=== PATIENT | male | born 1970 | race Hispanic/Latino ===

== ENCOUNTER → 2019-03-06 | Outpatient (CLI) | payer BC ==
[~2019-03-06] VITALS: Ht 180.3 cm; Wt 121.6 kg
[~2019-03-06] MED LIST: REGADENOSON 0.4 MG/5 ML PF SYG IVP SCH
== END | disposition home or self-care (01) ==
LOC: SHCH 07:52
PROVIDERS: ATTEND Internal Medicine Cardiovascular Disease
DX: R06.02 Shortness of breath (principal)
CPT/HCPCS: 78452; 93017; 96374; A9500 ×2; J2785

== ENCOUNTER 2019-06-09 17:51 | Observation (INO) | payer BC ==
[~2019-06-09] VITALS: Ht 180.3 cm; Wt 95.8 kg
[2019-06-09 18:11] LABS: BASOPHILS % (AUTO) 0.4 % (0.0-5.0); EOSINOPHILS % (AUTO) 1.8 % (0.0-8.0); HEMATOCRIT 44.8 % (42-54); LYMPHOCYTES % (AUTO) 15.2 % (21.0-51.0); MEAN CORPUSCULAR HEMOGLOBIN 32.2 pg (27.0-33.0); MEAN CORPUSCULAR HGB CONC 35.1 g/dL (32.0-36.0); MEAN CORPUSCULAR VOLUME 91.6 fL (79-99); MONOCYTES % (AUTO) 7.7 % (3.0-13.0); NEUTROPHILS % (AUTO) 74.9 % (40.0-77.0); PLATELET COUNT (AUTO) 262 K/uL (130-400); RED BLOOD CELL COUNT(AUTO) 4.89 MIL/uL (4.50-6.20); RED CELL DISTRIBUTION WIDTH 13.5 % (11.0-15.5); WHITE BLOOD COUNT (AUTO) 11.7 K/uL (4.8-10.8)
[2019-06-09 18:20] LABS: POTASSIUM 3.9 mmol/L (3.5-5.1)
[2019-06-09 18:22] LABS: INR 0.95 (0.85-1.15); PARTIAL THROMBOPLASTIN TIME 28.4 SEC (26.3-35.5)
[2019-06-09 18:25] LABS: BILIRUBIN,TOTAL 0.7 mg/dL (0.2-1.0); TOTAL PROTEIN, SERUM 7.2 g/dL (6.0-8.3)
[2019-06-09] MEDS ORDERED: ASPIRIN 325 MG TABLET ONE (18:56)
[2019-06-09] MEDS ORDERED: NITROGLYCERIN 0.4 MG SL TAB SL ONE (18:57)
[2019-06-09 19:47] LABS: CREATINE KINASE, TOTAL 199 U/L (21-232); MYOGLOBIN 46 ng/mL (10-92); TROPONIN I < 0.04 ng/mL (0.00-0.06)
[2019-06-09] MEDS ORDERED: NITROGLYCERIN 0.4 MG SL TAB SL PRN (20:00)
[2019-06-10] MEDS ORDERED: ASPI-555 PO (00:09)
[2019-06-10] MEDS ORDERED: CARV25TA PO (00:09)
[2019-06-10] MEDS ORDERED: LEVO125T11 PO (00:09)
[2019-06-10] MEDS ORDERED: CHOL200012 PO (00:09)
[2019-06-10] MEDS ORDERED: FISH12002 PO (00:09)
[2019-06-10] MEDS ORDERED: ROSU20TA23 PO (00:09)
[2019-06-10] MEDS ORDERED: UBID100C45 PO (00:09)
[2019-06-10 01:39] LABS: CREATINE KINASE, TOTAL 165 U/L (21-232); MYOGLOBIN 52 ng/mL (10-92); TROPONIN I < 0.04 ng/mL (0.00-0.06)
[2019-06-10 04:20] VITALS: BP 150/80
[2019-06-10 07:51] VITALS: BP 129/67
[2019-06-10 11:40] VITALS: BP 113/81
--- NOTE | 2019-06-10 14:15 | NUR ---
Dr borja at patients bedside to review plan of care. ordered med stat on dose and for patient to be discharged home
[2019-06-10] MEDS ORDERED: CARVEDILOL 25 MG TABLET PO STA (15:01)
[2019-06-10 15:05] VITALS: BP 145/96
[2019-06-10] MEDS ORDERED: CARVEDILOL 25 MG TABLET PO ONE (15:07)
[2019-06-10 15:40] VITALS: BP 145/96
--- NOTE | 2019-06-10 17:30 | NUR ---
Patient discharged at 1512 instruction, education, and medicaiton education were completed. patient left with all belongings and all questions answered.
== END 2019-06-10 17:29 | disposition home or self-care (01) ==
LOC: EDH 17:51 → EDHIP 19:10 → 2DH 06-10 04:16
PROVIDERS: ADMIT Internal Medicine; ATTEND Internal Medicine
DX: R07.89 Other chest pain (principal); I10 Essential (primary) hypertension; E78.00 Pure hypercholesterolemia, unspecified; I25.10 Atherosclerotic heart disease of native coronary artery without angina pectoris; E78.5 Hyperlipidemia, unspecified; Z87.891 Personal history of nicotine dependence; Z95.5 Presence of coronary angioplasty implant and graft; Z79.899 Other long term (current) drug therapy
CPT/HCPCS: 36415; 71045; 80053; 82550; 83874; 84484; 85025; 85610; 85730; 93005; G0378

== ENCOUNTER 2019-09-22 09:45 | Day surgery (SDC) | payer BC ==
[2019-09-17 09:17] LABS: BASOPHILS % (AUTO) 0.6 % (0.0-5.0); HEMATOCRIT 44.5 % (42-54); LYMPHOCYTES % (AUTO) 14.8 % (21.0-51.0); MEAN CORPUSCULAR HEMOGLOBIN 30.7 pg (27.0-33.0); MEAN CORPUSCULAR HGB CONC 35.3 g/dL (32.0-36.0); MEAN CORPUSCULAR VOLUME 86.9 fL (79-99); MONOCYTES % (AUTO) 10.1 % (3.0-13.0); NEUTROPHILS % (AUTO) 71.2 % (40.0-77.0); PLATELET COUNT (AUTO) 226 K/uL (130-400); RED BLOOD CELL COUNT(AUTO) 5.12 MIL/uL (4.50-6.20); RED CELL DISTRIBUTION WIDTH 12.5 % (11.0-15.5); WHITE BLOOD COUNT (AUTO) 9.3 K/uL (4.8-10.8)
[2019-09-17 09:20] LABS: APPEARANCE,URINE Clear (CLEAR); BILIRUBIN,URINE Negative (NEGATIVE); COLOR,URINE Yellow (YELLOW); GLUCOSE, URINE (UA) Negative (NEGATIVE); KETONES,URINE Negative (NEGATIVE); LEUKOCYTE ESTERASE ,URINE Negative (NEGATIVE); NITRATE,URINE Negative (NEGATIVE); OCCULT BLOOD,URINE Negative (NEGATIVE); PROTEIN,URINE Negative (NEGATIVE)
[2019-09-17 09:33] LABS: POTASSIUM 4.1 mmol/L (3.5-5.1)
[2019-09-17 09:35] LABS: INR 0.94 (0.85-1.15); PARTIAL THROMBOPLASTIN TIME 28.3 SEC (26.3-35.5); PROTHROMBIN TIME 9.9 SEC (9.6-11.6)
[2019-09-17 09:44] VITALS: BP 116/72
[2019-09-17 10:29] VITALS: BP 116/72
[~2019-09-22] VITALS: Ht 180.3 cm; Wt 120.3 kg
[2019-09-22] VITALS (9 sets, daily range): BP systolic 96–114; BP diastolic 44–92
[~2019-09-22 09:45] MED LIST changes: +ASPI-555 PO; +CARV25TA PO; +CHOL100018 PO; +FISH12002 PO; +LEVO125T11 PO; +LISI-613 PO; +MULT-1258 PO; +OMEP40CA13 PO; -REGADENOSON 0.4 MG/5 ML PF SYG IVP SCH; +ROSU40TA21 PO; +UBID100C45 PO
[2019-09-22] MEDS ORDERED: IOHEXOL-350 50ML VIAL IV ONE (12:12)
[2019-09-22] MEDS ORDERED: LIDOCAINE HCL 2% 20ML ONE ×2 (12:12→14:05)
[2019-09-22] MEDS ORDERED: BIVALIRUDIN 250 MG/VIAL IV ONE (12:12)
[2019-09-22] MEDS ORDERED: NITROGLYCERIN 2 MG/VIAL VIAL IV ONE (12:12)
[2019-09-22] MEDS ORDERED: IOHEXOL 350 MG/ML 100ML INFUS..BTL IV ONE (12:12)
[2019-09-22] MEDS ORDERED: HEPARIN SODIUM 1000UNIT/ML 10ML VIAL ONE (12:12)
[2019-09-22] MEDS ORDERED: FENTANYL CITRATE PF 50 MCG/1 ML 2ML VIAL ONE ×2 (12:13→14:05)
[2019-09-22] MEDS ORDERED: SODIUM CHLORIDE 0.9% 1000ML 1,000 ML IV ONE (12:13)
[2019-09-22] MEDS ORDERED: MIDAZOLAM HCL 1 MG/ML 2ML VIAL ONE ×2 (12:13→13:40)
[2019-09-22] MEDS ORDERED: NICARDIPINE HCL 25 MG/10 ML ML IV ONE (12:54)
[2019-09-22] MEDS ORDERED: SODIUM CHLORIDE 0.9% 1000ML 1,000 ML IV SCH (14:28)
[2019-09-22] MEDS ORDERED: DEXTROSE 50%-WATER 50 ML DISP.SYRIN IV PRN (14:30)
[2019-09-22] MEDS ORDERED: HYDRALAZINE HCL 20 MG/ML VIAL IV PRN (14:30)
[2019-09-22] MEDS ORDERED: NITROGLYCERIN 0.4 MG SL TAB SL PRN (14:30)
[2019-09-22] MEDS ORDERED: GLUCAGON 1MG KIT 1 MG ML IM PRN (14:30)
[2019-09-22] MEDS ORDERED: ACETAMINOPHEN-CODEINE 300/30MG TAB PO PRN (14:30)
[2019-09-22] MEDS ORDERED: METOPROLOL TARTRATE 1 MG/ML 5ML VIAL IV PRN (14:30)
--- NOTE | 2019-09-22 15:54 | NUR ---
COMMENCED TO REMOVE TR BAND TOTAL OF 9CC REMOVED, NO BLEEDING NO COMPLICATION PT STABLE, WILL CONT TO MONITOR
== END 2019-09-22 18:27 | disposition home or self-care (01) ==
LOC: DAH 09:45
PROVIDERS: ATTEND Internal Medicine Cardiovascular Disease
DX: I25.118 Atherosclerotic heart disease of native coronary artery with other forms of angina pectoris (principal); I10 Essential (primary) hypertension; E78.5 Hyperlipidemia, unspecified; E03.9 Hypothyroidism, unspecified; K21.9 Gastro-esophageal reflux disease without esophagitis; Z79.82 Long term (current) use of aspirin; Z79.899 Other long term (current) drug therapy; Z87.891 Personal history of nicotine dependence; Z72.89 Other problems related to lifestyle; Z82.49 Family history of ischemic heart disease and other diseases of the circulatory system; Z83.3 Family history of diabetes mellitus; Z98.890 Other specified postprocedural states
CPT/HCPCS: 36415; 71045; 80048; 81003; 85025; 85610; 85730; 93005; 93458; A4215; A4216; A4221; A4222; A4223 ×3; A4606; A4663; C1760; C1769; C1894 ×3; J1644 ×2; J2250 ×2; J3010 ×2; J3490 ×4; J7030; Q9965; Q9967 ×2; 99156; 99157; J0583